=== PATIENT | male | born 1960 | race African-American/Black ===

== ENCOUNTER 2017-01-16 10:05 | Emergency (ER) | payer MEDICAID ==
[~2017-01-16] VITALS: Ht 190.5 cm; Wt 91.8 kg
[2017-01-16 10:07] VITALS: BP 118/77
[2017-01-16 10:57] LABS: RAPID INFLUENZA A Negative (Negative); RAPID INFLUENZA B Negative (Negative)
== END 2017-01-16 11:24 | disposition home or self-care (01) ==
LOC: ED 10:22
DX: J20.8 Acute bronchitis due to other specified organisms (principal)
CPT/HCPCS: 71020; 87400; 99285

== ENCOUNTER 2020-08-27 12:12 | Emergency (ER) | payer MEDICAID ==
[~2020-08-27] VITALS: Ht 190.5 cm; Wt 90.0 kg
[2020-08-27 12:19] VITALS: BP 120/83
--- NOTE | 2020-08-27 13:25 | NUR ---
Patient given discharge instructions and Rx, they have confirmed that they understand the instructions. Patient ambulatory with steady gait.
== END 2020-08-27 13:46 | disposition home or self-care (01) ==
LOC: ED 13:20
DX: R21 Rash and other nonspecific skin eruption (principal); B88.9 Infestation, unspecified; J45.909 Unspecified asthma, uncomplicated
CPT/HCPCS: 99283